=== PATIENT | male | born 1955 | race Caucasian/White ===

== ENCOUNTER → 2016-09-25 | Outpatient (CLI) | payer BC ==
--- NOTE | 2016-10-06 22:58 | ECHO ---
The echocardiogram report can be seen in this patient's EMR in the Reports section. [id number]
== END ==
LOC: MW.US 12:22
PROVIDERS: ATTEND Internal Medicine Interventional Cardiology
DX: I25.10 Atherosclerotic heart disease of native coronary artery without angina pectoris (principal); I51.7 Cardiomegaly; I34.0 Nonrheumatic mitral (valve) insufficiency; I37.1 Nonrheumatic pulmonary valve insufficiency; I36.1 Nonrheumatic tricuspid (valve) insufficiency; Z13.6 Encounter for screening for cardiovascular disorders; Z95.4 Presence of other heart-valve replacement
CPT/HCPCS: 36415; 80061; 93306

== ENCOUNTER → 2016-10-31 | Outpatient (CLI) | payer BC | LOC: MW.LAB 10:22 | PROVIDERS: ATTEND Internal Medicine Interventional Cardiology | DX: Z51.81 Encounter for therapeutic drug level monitoring (principal); Z79.01 Long term (current) use of anticoagulants; Z95.2 Presence of prosthetic heart valve | CPT/HCPCS: 36415; 85610 ==

== ENCOUNTER 2023-03-07 08:39 | Day surgery (SDC) | payer BC ==
[~2023-03-07 08:39] MED LIST: Acetaminophen 1,000 MG in Premix Bag 1 BAG IV SCH; Pregabalin 75 MG Cap PO SCH; ceFAZolin 2 GM in Sodium Chloride 0.9% 50 ML IV ONE
[2023-03-07] MEDS ORDERED: Ropivacaine 0.5% 5 MG/ML 30 ML SDV ONE (08:49)
[2023-03-07] MEDS ORDERED: fentaNYL 100 MCG/2 ML SDV ONE (08:53)
[2023-03-07] MEDS ORDERED: Rocuronium Bromide 50 MG/5 ML Syringe ONE ×2 (08:53→10:41)
[2023-03-07] MEDS ORDERED: Ondansetron 4 MG/2 ML SDV ONE ×2 (08:53)
[2023-03-07] MEDS ORDERED: Sugammadex Sodium 200 MG/2 ML VIAL ONE (08:55)
[2023-03-07] MEDS ORDERED: Lidocaine 2% 100 MG/5 ML Syringe ONE ×2 (08:55→10:54)
[2023-03-07] MEDS ORDERED: Morphine 10 MG/ML SDV ONE (08:57)
[2023-03-07] MEDS ORDERED: Ondansetron 4 MG/2 ML SDV IVPUSH PRN (08:58)
[2023-03-07] MEDS ORDERED: Albuterol 0.083% 2.5 MG/3 ML Neb Soln NEB PRN (08:58)
[2023-03-07] MEDS ORDERED: HYDROmorphone 1 MG/ML Syringe IVPUSH PRN (08:58)
[2023-03-07] MEDS ORDERED: Metoclopramide 10 MG/2 ML SDV IVPUSH PRN (08:58)
[2023-03-07] MEDS ORDERED: fentaNYL 50 MCG/ML SDV IVPUSH PRN (08:58)
[2023-03-07] MEDS ORDERED: Naloxone 0.4 MG/ML SDV IVPUSH PRN (08:58)
[2023-03-07] MEDS ORDERED: droPERidol 5 MG/2 ML SDV IVPUSH PRN (08:58)
[2023-03-07] MEDS ORDERED: Bupivacaine 0.5% 30 ML SDV ONE (09:05)
[2023-03-07] MEDS: Lactated Ringers 1,000 ML IV SCH ×2 (09:10→11:16)
[2023-03-07] MEDS ORDERED: Magnesium Sulfate (4.06 MEQ/ML) 5 GM/10 ML SDV ONE (10:41)
[2023-03-07] MEDS ORDERED: ceFAZolin 1 GM Vial ONE ×2 (10:43)
[2023-03-07] MEDS ORDERED: Esmolol 100 MG/10 ML SDV ONE ×2 (11:27)
[2023-03-07] MEDS ORDERED: Calcium Chloride 10% 1 GM/10 ML Syringe ONE (11:44)
[2023-03-07] MEDS ORDERED: Phenylephrine HCl 0.5 MG/5 ML AMP ONE (12:01)
[2023-03-07 14:02] VITALS: BP 114/60; PULSE 60
[2023-03-08] MEDS ORDERED: propofoL 50 ML ONE ×2 (09:36)
== END 2023-03-07 13:40 | disposition home or self-care (01) ==
LOC: MW.SDS 08:39
PROVIDERS: ATTEND Surgery
DX: K42.0 Umbilical hernia with obstruction, without gangrene (principal); I25.10 Atherosclerotic heart disease of native coronary artery without angina pectoris; J44.9 Chronic obstructive pulmonary disease, unspecified; E78.5 Hyperlipidemia, unspecified; K21.9 Gastro-esophageal reflux disease without esophagitis; E11.9 Type 2 diabetes mellitus without complications; E66.9 Obesity, unspecified; F17.210 Nicotine dependence, cigarettes, uncomplicated; Z88.5 Allergy status to narcotic agent; Z79.01 Long term (current) use of anticoagulants; Z79.84 Long term (current) use of oral hypoglycemic drugs; Z79.899 Other long term (current) drug therapy; Z95.5 Presence of coronary angioplasty implant and graft
CPT/HCPCS: 49592; 64488; 82947; 94640; A9270; C1781; J0131; J0690; J2370; J2704; J2795; J3010; J3475; J3490; J7120; J2270; J2405; J7620-GY